=== PATIENT | female | born 1995 | race Caucasian/White ===

== ENCOUNTER 2019-06-13 11:14 | Emergency (ER) | payer OTHER ==
[2019-06-13 11:37] VITALS: TEMP 97.5; BMI 28.1
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
[2019-06-13] MEDS ORDERED: KETOROLAC TROMETHAMINE 10 MG TABLET PO ONE (14:41)
[2019-06-13] MEDS ORDERED: CYCLOBENZAPRINE HCL 10 MG TABLET (FP) PO ONE (14:41)
[2019-06-13] MEDS ORDERED: LIDOCAINE 5% TOPICAL PATCH TP ONE (14:41)
[2019-06-13] MEDS ORDERED: CYCLOBENZAPRINE HCL 10 MG TABLET (FP) ONE (14:53)
[2019-06-13] MEDS ORDERED: LIDOCAINE 5% TOPICAL PATCH ONE (14:54)
[2019-06-13] MEDS ORDERED: IBUPROFEN 400 MG TABLET (FP) PO ONE ×2 (14:55→14:56)
[2019-06-13 15:35] VITALS: BP 107/62; PULSE 92
== END 2019-06-13 14:55 | disposition home or self-care (01) ==
LOC: JERFT 11:14
DX: R51 Headache (principal); S13.4XXA Sprain of ligaments of cervical spine, initial encounter; V49.9XXA Car occupant (driver) (passenger) injured in unspecified traffic accident, initial encounter; Y93.89 Activity, other specified; Y92.410 Unspecified street and highway as the place of occurrence of the external cause
CPT/HCPCS: 70450-TC; 72125-TC; 73590-TC-RT-FY; 99282-25

== ENCOUNTER 2024-08-17 19:20 | Inpatient (IN) | payer OTHER ==
[2024-08-17] MEDS: ELECTROLYTE-148 SOLN 1,000 ML IV SCH (20:35)
[2024-08-17 20:49] LABS: ABSOLUTE IMMATURE GRANULOCYTES 0.06 x10^3/uL (0.0-0.031); BASOPHILS # 0.02 x10^3/uL (0.01-0.08); EOSINOPHIL % 0.9 % (0.7-5.8); HEMATOCRIT 34.8 % (34.1-44.9); HEMOGLOBIN 11.3 g/dL (11.2-15.7); MCHC 32.5 g/dl (32.2-35.5); MEAN CELL VOLUME 94.3 fl (79.4-94.8); MEAN PLT VOLUME 13.3 fl (9.4-12.3); MONOCYTE % 8.4 % (4.7-12.5); PLATELET COUNT 115 x10^3/uL (182-369)
[2024-08-17 20:56] LABS: INR 0.91 (0.83-1.09); PROTHROMBIN TIME (PATIENT) 9.9 SEC (9.7-13.0)
[2024-08-17 20:58] LABS: ACTIVATED PTT 24.8 SECONDS (25.2-36.5)
[2024-08-17 21:27] LABS: POTASSIUM 3.9 mmol/L (3.5-5.1)
[2024-08-17 21:30] LABS: BLOOD UREA NITROGEN 15.9 mg/dL (7-18); CALCIUM 8.6 mg/dL (8.5-10.1)
[2024-08-17 21:33] LABS: CREATININE 0.6 mg/dL (0.55-1.3)
[2024-08-17 21:46] VITALS: BMI 33.8
[2024-08-17] MEDS ORDERED: OXYTOCIN 30 UNITS in 0.9% NS 30 UNIT/500 ML INFUS.BAG IVPB ONE (21:48)
[2024-08-17] MEDS: OXYTOCIN 30 UNITS in 0.9% NS 30 UNIT/500 ML INFUS.BAG IVPB SCH (22:00)
[2024-08-17] MEDS ORDERED: BUTORPHANOL TARTRATE 2 MG/ML VIAL ONE (23:53)
[2024-08-17] MEDS ORDERED: PROMETHAZINE HCL 25 MG/1 ML VIAL ONE (23:53)
[2024-08-18] MEDS ORDERED: BUTORPHANOL TARTRATE 2 MG/ML VIAL ONE (04:43)
[2024-08-18] MEDS ORDERED: PROMETHAZINE HCL 25 MG/1 ML VIAL ONE (04:43)
[2024-08-18] MEDS: BUTORPHANOL TARTRATE 1 MG/ML VIAL IVPB ONE ×2 (04:50)
[2024-08-18] MEDS: PROMETHAZINE HCL 25 MG/1 ML VIAL IVPB ONE ×2 (04:50)
[2024-08-18] MEDS ORDERED: FENTANYL/BUPIVACAINE/NS/PF - PCEA - 50 ML DISP.SYRIN EP ONE ×5 (07:13→21:46)
[2024-08-18] MEDS: FENTANYL/BUPIVACAINE/NS/PF - PCEA - 50 ML DISP.SYRIN EP SCH (08:00)
[2024-08-18] MEDS ORDERED: NALOXONE HCL 0.4 MG/ML VIAL IVPUSH PRN (08:21)
[2024-08-18] MEDS ORDERED: OXYTOCIN 30 UNITS in 0.9% NS 30 UNIT/500 ML INFUS.BAG IVPB ONE (19:10)
[2024-08-18] MEDS ORDERED: morphine SULFATE/PF 1 MG/2 ML (2cc Syringe - QUVA) ONE (23:13)
[2024-08-19 00:20] LABS: CORD BASE EXCESS -6.1 mmol/L (0-2); CORD HCO3 19.9 mmHg (20-29); CORD HCO3 20.3 mmHg (20-29); CORD PCO2 50.2 mmHg (30-78); CORD pH 7.224 (7.14-7.44); CORD pH 7.304 (7.14-7.44)
[2024-08-19] MEDS ORDERED: BENZOCAINE 28 GM HEMORRHOIDAL OINTMENT TP PRN (00:40)
[2024-08-19] MEDS ORDERED: WITCH HAZEL 50% (TUCKS) 40 PAD/JAR PAD TP PRN (00:40)
[2024-08-19] MEDS ORDERED: METHYLERGONOVINE MALEATE 0.2 MG/1 ML AMP IM PRN (00:40)
[2024-08-19] MEDS ORDERED: BENZOCAINE 20% 57 GM BOTTLE TP PRN (00:40)
[2024-08-19] MEDS: AMPICILLIN - 2 GM in SODIUM CHLORIDE 100 ML IVPB SCH ×2 (00:45→06:17)
[2024-08-19] MEDS ORDERED: AMPICILLIN SODIUM 2 GM VIAL ONE (00:46)
[2024-08-19] MEDS ORDERED: ACETAMINOPHEN INJECTION 100 ML ONE (01:23)
[2024-08-19] MEDS: ACETAMINOPHEN 1000 MG/100 ML BAG IVPB ONE (01:25)
[2024-08-19] MEDS: GENTAMICIN INJECTION 150 MG in DEXTROSE 5%-WATER - 250 ML IVPB SCH (01:45)
[2024-08-19] MEDS ORDERED: OXYTOCIN 20 UNITS in 0.9% NS 20 UNIT/1,000 ML INFUS.BAG IV ONE (03:01)
[2024-08-19] MEDS: OXYTOCIN 20 UNITS in 0.9% NS 20 UNIT/1,000 ML INFUS.BAG IV SCH (03:05)
[2024-08-19] MEDS: SIMETHICONE 80 MG TAB.CHEW (FP) PO PRN (06:01)
[2024-08-19] MEDS: ACETAMINOPHEN 325 MG TABLET (FP) PO PRN (09:48)
[2024-08-19] MEDS: PRENATAL VITAMINS W/ FOLIC ACID TABLET (FP) PO SCH (09:48)
[2024-08-19] MEDS ORDERED: oxyCODONE HCL 5 MG TABLET PO PRN ×2 (12:40)
[2024-08-19] MEDS: IBUPROFEN (CALDOLOR) 800 MG/200 ML PREMIX BAGS IVPB PRN (13:52)
[2024-08-19] MEDS: IBUPROFEN 800 MG/8 ML IJ IVPB PRN (22:15)
[2024-08-20] MEDS ORDERED: BISACODYL 10 MG SUPP.RECT RC PRN (00:40)
[2024-08-20] MEDS: IBUPROFEN 600 MG TABLET (FP) PO PRN (07:14)
[2024-08-20 07:33] LABS: ABSOLUTE IMMATURE GRANULOCYTES 0.06 x10^3/uL (0.0-0.031); BASOPHILS # 0.04 x10^3/uL (0.01-0.08); EOSINOPHIL % 1.7 % (0.7-5.8); EOSINOPHILS # 0.21 x10^3/uL (0.04-0.36); HEMATOCRIT 31.5 % (34.1-44.9); HEMOGLOBIN 10.2 g/dL (11.2-15.7); MCHC 32.4 g/dl (32.2-35.5); MEAN CELL VOLUME 97.5 fl (79.4-94.8); MEAN PLT VOLUME 13.6 fl (9.4-12.3); MONOCYTE # 0.62 x10^3/uL (0.24-0.86); PLATELET COUNT 97 x10^3/uL (182-369); RDW 14.1 % (12.1-16.5)
[2024-08-20] MEDS: ENOXAPARIN NA (PORCINE) 40 MG/0.4 ML DISP.SYRIN SQ SCH (11:03)
[2024-08-20] MEDS: SENNOSIDES/DOCUSATE COMBO (SENNA PLUS) TABLET (UD) PO PRN (23:09)
[2024-08-21 00:32] VITALS: TEMP 98.1
[2024-08-21 08:06] LABS: ABSOLUTE IMMATURE GRANULOCYTES 0.05 x10^3/uL (0.0-0.031); BASOPHILS # 0.02 x10^3/uL (0.01-0.08); EOSINOPHIL % 1.6 % (0.7-5.8); EOSINOPHILS # 0.16 x10^3/uL (0.04-0.36); HEMATOCRIT 32.8 % (34.1-44.9); HEMOGLOBIN 10.7 g/dL (11.2-15.7); MCHC 32.6 g/dl (32.2-35.5); MEAN CELL VOLUME 94.8 fl (79.4-94.8); MEAN PLT VOLUME 13.1 fl (9.4-12.3); MONOCYTE % 5.8 % (4.7-12.5); PLATELET COUNT 127 x10^3/uL (182-369); RDW 13.8 % (12.1-16.5)
[2024-08-21 10:10] VITALS: BP 103/67; PULSE 69; RESP 17
== END 2024-08-21 13:10 | disposition home or self-care (01) | DRG 788 ==
LOC: JLDR 19:20 → J3W 08-19 03:35
PROVIDERS: ADMIT Obstetrics & Gynecology; ATTEND Obstetrics & Gynecology
PROC: 10D00Z1 Extraction of Products of Conception, Low, Open Approach (ICD-10-PCS; principal; 2024-08-19)
DX: O48.0 Post-term pregnancy (principal); O62.1 Secondary uterine inertia; O77.0 Labor and delivery complicated by meconium in amniotic fluid; Z3A.40 40 weeks gestation of pregnancy; Z37.0 Single live birth
CPT/HCPCS: 36415; 36600; 80048; 82803; 85025; 85610; 85730; 86780; 86850; 86870; 86880; 86900; 86901; 86902; 88307-TC; 94010; J0131